=== PATIENT | male | born 1950 | race Caucasian/White ===

== ENCOUNTER → 2018-12-29 | Outpatient (CLI) | payer MEDICARE ==
--- NOTE | 2018-12-29 10:58 | PCVCIMAG ---
EXAM: AORTOILIAC DUPLEX INDICATION: Palpable abdominal fullness. FINDINGS: AORTA: Suprarenal aorta measures maximum diameter of 3.0 cm. There is not a fusiform infrarenal aortic aneurysm. The infrarenal aorta measures maximum diameter of 2.6 cm. No aortic stenosis. RIGHT COMMON ILIAC ARTERY: Maximum diameter is 1.3 cm. No significant stenosis. RIGHT EXTERNAL ILIAC ARTERY: No significant stenosis. LEFT COMMON ILIAC ARTERY: Maximum diameter is 1.3 cm. No significant stenosis. LEFT EXTERNAL ILIAC ARTERY: No significant stenosis. IMPRESSION: No abdominal aortic aneurysm. No aortoiliac stenosis seen. LOC:[id number]
== END | disposition home or self-care (01) ==
LOC: PCVCIMAG 10:06
PROVIDERS: ATTEND Internal Medicine
DX: I10 Essential (primary) hypertension (principal); E78.5 Hyperlipidemia, unspecified; R09.89 Other specified symptoms and signs involving the circulatory and respiratory systems; E78.00 Pure hypercholesterolemia, unspecified
CPT/HCPCS: 93005; 93978; G0463

== ENCOUNTER → 2019-01-06 | Outpatient (CLI) | payer MEDICARE ==
--- NOTE | 2019-01-06 14:58 | PCVCIMAG ---
APPROVED REPORT Study performed: 01/06/2019 08:59:54 EXAM: Comprehensive 2D, Doppler, and color-flow Echocardiogram Patient Location: Echo lab Status: routine BSA: 1.96 HR: 89 bpmBP: 110/70 mmHg Rhythm: NSR Other Information Study Quality: Technically Difficult Risk Factors: Cardiac Risk Factors: HTN, Hyperlipidemia 2D Dimensions IVSd: 11.75 (7-11mm)LVOT Diam: 20.90 (18-24mm) LVDd: 47.64 mm PWd: 11.22 (7-11mm)Ascending Ao: 37.05 (22-36mm) LVDs: 30.31 (25-40mm) Left Atrium: 30.38 (27-40mm) Aortic Root: 30.00 mm LV Single Plane 4CH: 59.04 % LV Single Plane 2CH: 49.47 % Biplane EF: 54.6 % Volumes Left Atrial Volume (Systole) Single Plane 4CH: 46.41 mLSingle Plane 2CH: 51.46 mL LA ESV Index: 26.00 mL/m2 Aortic Valve AoV Peak El.: 1.76 m/s AO Peak Gr.: 12.44 mmHgLVOT Max P.63 mmHg LVOT Max V: 1.19 m/s ERA Vmax: 2.31 cm2 Mitral Valve E/A Ratio: 0.9 MV Decel. Time: 181.41 ms MV E Max El.: 0.79 m/s MV A El.: 0.90 m/s IVRT: 124.57 ms TDI E/Lateral E': 11.29E/Medial E': 8.78 Medial E' El.: 0.09 m/s Lateral E' El.: 0.07 m/s Pulmonary Valve PV Peak Gr.: 2.18 mmHg Pulmonary Vein P Vein S: 0.65 m/sP Vein A: 0.53 m/s P Vein D: 0.40 m/sP Vein A Dur.: 100.3 msec P Vein S/D Ratio: 1.63 Left Ventricle The left ventricle is normal size. There is normal LV segmental wall motion. There is normal left ventricular wall thickness. Left ventricular systolic function is normal. The left ventricular ejection fraction is within the normal range. LVEF is 55-60%. The left ventricular diastolic function is normal. Right Ventricle The right ventricle is normal size. The right ventricular systolic function is normal. Atria The left atrium size is normal. The right atrium size is normal. Aortic Valve The aortic valve is normal in structure. No aortic regurgitation is present. There is no aortic valvular stenosis. Mitral Valve The mitral valve is normal in structure. There is no mitral valve regurgitation noted. No evidence of mitral valve stenosis. Tricuspid Valve The tricuspid valve is normal in structure. There is no tricuspid valve regurgitation noted. Pulmonic Valve The pulmonary valve is normal in structure. There is no pulmonic valvular regurgitation. Great Vessels The aortic root is normal in size. IVC is normal in size and collapses >50% with inspiration. Pericardium There is no pericardial effusion. <Conclusion> The left ventricle is normal size. LVEF is 55-60%. The aortic valve is normal in structure. The mitral valve is normal in structure. The tricuspid valve is normal in structure. The pulmonary valve is normal in structure. There is no pericardial effusion.
== END | disposition home or self-care (01) ==
LOC: PCVCIMAG 09:08
PROVIDERS: ATTEND Internal Medicine
DX: R09.89 Other specified symptoms and signs involving the circulatory and respiratory systems (principal); I10 Essential (primary) hypertension; E78.5 Hyperlipidemia, unspecified
CPT/HCPCS: 93306